=== PATIENT | female | born 1940 | race Caucasian/White ===

== ENCOUNTER 2017-01-09 05:29 | Inpatient (IN) | payer MEDICARE, BC ==
[2017-01-06 14:21] LABS: HEMOGLOBIN 13.6 g/dL (12.0-16.0)
[2017-01-06 14:22] LABS: HEMATOCRIT 41.4 % (36.0-48.0)
--- NOTE | ~2017-01-09 | PREOPHP ---
PreOp History and Physical [facility] [address] [place]. [address] NAME: LILIANA WILHELM : 38 STATUS : ADM IN PAT#: [id number] AGE: 76 ADM/REG DATE : 01/09/17 MR#: [id number] REPORT SERV DATE: 01/09/17 DICTATED BY: NABEEL JOYCE DATE: 01/09/17 REPORT STATUS : Draft TRANSCRIBED BY: MODRadha DATE: 01/09/17 CHIEF COMPLAINT: Back pain and right leg pain. HISTORY OF PRESENT ILLNESS: This is a 76-year-old female, who has had a previous L3-L5 fusion by Dr. Bello several years ago. She recently has had an acute onset of severe pain in the right hip and leg and the right groin. The pain is so severe she is having a hard time just functioning at all. The patient has failed to respond to any conservative care. Plain x-rays reveal osteopenia. MRI shows a large disk herniation centrally into the right at L1-L2 with rather severe impingement. There is moderate spinal stenosis at L2-L3. The patient is admitted for hardware removal at L3. There will be right-sided L1-L2 and L2- L3 hemilaminectomy, foraminotomy, facetectomy with decompression. The facetectomy is necessary in order to adequately decompress the central canal and the foramen, particularly to have access to the disk herniation at L1-L2 and with facetectomy, instability will be created. Re-stabilization will be through a complete transforaminal diskectomy and interbody cage insertion, a posterolateral interbody fusion with local bone graft and allograft, and a posterior percutaneous instrumentation from L1-L3. Prior to surgery, I have gone over the risks, benefits, alternatives, and expectations in great detail. Consent form has been signed. Please also note because of the complexity of the surgery and the need to identify correct level of surgery intraoperatively as well as desire to carry out the safest and most precise dissection, I feel intraoperative navigation is mandatory. Today, in the preop holding, the patient was identified, all questions were answered, and the patient expressed the desire to proceed with surgery. PAST MEDICAL HISTORY: Has included osteoporosis, anxiety, osteoarthritis, hypertension, hyperthyroidism with Graves disease, peripheral neuropathy, and depression. PAST SURGICAL HISTORY: Partial thyroidectomy, skin cancer removals, D and C, cataract extraction, lens implant, lumbar fusion L3-L5, knee arthroscopy, hammertoe corrections of the right foot, and a bunionectomy on the right side. CURRENT MEDICATIONS: Include Celebrex, Fosamax, hydrocodone, hydrocortisone topical cream, latanoprost eye drops, methocarbamol, Montelukast, Nystatin topical cream, Synthroid, simvastatin, Prevnar, and Xiidra 5% eye drops. ALLERGIES: DAYPRO, IBUPROFEN, LYRICA, ONION, PAXIL, SULFA. SOCIAL HISTORY: . Retired. Nonsmoker and does not use any alcohol. FAMILY HISTORY: Father had hypertension. Mother had COPD and hypertension. REVIEW OF SYSTEMS: She wears corrective lenses and has to ambulate with an assistive device. PHYSICAL EXAMINATION: PreOp History and Physical [address] [place]. [address] NAME: LILIANA WILHELM : 38 STATUS : ADM IN [facility]#: [id number] AGE: 76 ADM/REG DATE : 01/09/17 MR#: [id number] REPORT SERV DATE: 01/09/17 DICTATED BY: NABEEL JOYCE DATE: 01/09/17 REPORT STATUS : Draft TRANSCRIBED BY: DARIANA DATE: 01/09/17 VITAL SIGNS: 5 feet 5 inches, 140 pounds, BMI is 23.3. GENERAL: She is alert, cooperative, well oriented. She ambulates very slowly with trunk forward flexed. HEENT: Grossly normal, except that her pupils are altered by prior surgery. Extraocular muscles are intact. Oral exam is grossly normal. NECK: There are no carotid bruits auscultated. LUNGS: Clear to auscultation. HEART: Rate is regular and rhythmic. ABDOMEN: Soft with good bowel sounds. No peritoneal signs are noted. MUSCULOSKELETAL: Spine has no gross deformities. There is pain with percussion over the thoracolumbar junction. There is no paraspinous muscle spasm. There are no leg length discrepancies. Femoral nerve stretch test is positive on the right, it is negative on the left. The straight leg raising signs are negative. Patella and Achilles reflexes are completely absent. There is a slight decrease in vibratory sensation in the feet. Otherwise, the sensation is grossly intact. Motor strengths are weak with the right iliopsoas at 4-/5, the adductor is also weak at 4-/5 on the right, quadriceps is 4+/5, all others are normal. Toes are downgoing. No ankle clonus found. ORTHOPEDIC: There is no pain with movement of hips, knees, or ankles. There are pulses in each extremity although weak, but they are symmetrical. There is no abnormal capillary refill. No abnormal skin lesions found. ASSESSMENT AND RECOMMENDATIONS: As listed above. /KIMIL Nabeel Joyce D.O. / [id number] CC: Nabeel Joyce D.O.
--- NOTE | ~2017-01-09 | DS ---
Discharge Summary [facility] [address] [place]. [address] NAME: LILIANA WILHELM : 38 STATUS : DIS IN PAT#: [id number] AGE: 76 ADM/REG DATE : 01/09/17 MR#: [id number] REPORT SERV DATE: 01/24/17 DICTATED BY: NABEEL JOYCE DATE: 01/23/17 REPORT STATUS : Draft TRANSCRIBED BY: MODL DATE: 01/23/17 Data Collection from hospitalization DISCHARGE DIAGNOSES: 1. Large herniated nucleus pulposus, severe spinal stenosis, central right L1-2. 2. Qqmjetjx-ik-duadwa spinal stenosis at L2-3. 3. Prior fusion at L3-5. 4. Hypertension. 5. Osteoporosis. 6. Anxiety and depression. 7. Osteoarthritis. 8. Hyperthyroidism. 9. Graves disease. 10.Peripheral neuropathy. CONSULTATIONS: None. PROCEDURES PERFORMED: Microscopic and navigation-assisted surgery; L3 hardware removal; right-sided L1-2 and L2-3 hemilaminectomy, foraminotomy, facetectomy, transforaminal diskectomy, anterior interbody Capstone cage insertion; posterolateral interbody fusion with local bone graft, allograft and small dosage of bone protein at L1-2 and L2-3; posterior percutaneous segmental instrumentation at L1-L3 using Ummitechger System, 01/09/2017. PATHOLOGY: Bone and soft tissue, lumbar spine-bone skeletal muscle and fibrocartilage. No significant pathologic abnormality. No infection or neoplasm. Lumbar hardware (see gross description). DISCHARGE MEDICATIONS: Vitamin B12 1000 mcg daily, Caltrate plus D 600 mg daily, vitamin D 1000 units daily, Colace 100 mg twice a day, MiraLAX one packet every morning as instructed, Metamucil one packet daily, Zocor 20 mg at bedtime, Mylanta 30 mL as needed, Dulcolax 10-15 mg orally or rectally as needed, [place] 5/325 one to two tablets every six hours as needed for pain, Robaxin 500 mg three times a day as needed, milk of magnesia 30 mL twice a day as needed, Azopt one drop twice a day as instructed, Xiidra one drop every 12 hours, multivitamins one tablet daily. CONDITION AT DISCHARGE: Stable. DISPOSITION: The patient was discharged to [facility] on a 2200-calorie diabetic diet with activities as instructed. She would follow up with Светлана Lawson, 01/25/2017. HOSPITAL COURSE: This is a 76-year-old female, who had had previous L3-L5 fusion by Dr. Bello several years prior to this admission. She recently had the acute onset of severe pain in the right hip and leg and in the right groin. The pain was so severe that she was having a hard time just functioning at all. The patient had failed to respond to any conservative care. Plain x-rays revealed osteopenia. MRI showed large disk herniation centrally and the right L1-L2 with rather severe impingement. Here was moderate spinal stenosis at L2-L3. Treatment options were discussed and it was elected to proceed with surgical intervention. She was admitted to the hospital at this time for further evaluation Discharge Summary [address] [place]. [address] NAME: LILIANA WILHELM : 38 STATUS : DIS IN PAT#: [id number] AGE: 76 ADM/REG DATE : 01/09/17 MR#: [id number] REPORT SERV DATE: 01/24/17 DICTATED BY: NABEEL JOYCE DATE: 01/23/17 REPORT STATUS : Draft TRANSCRIBED BY: DARIANA DATE: 01/23/17 and treatment. Upon admission, she was taken to the operating room, where she underwent the above-mentioned procedure. She tolerated this well and there were no complications. On postop day one, she was doing okay. She was evaluated by Physical Therapy. The patient has poor pain tolerance. On postop day two, she was sleepy. Her diet was going to be advanced. She was changed to oral medications. Over the next couple of days, she continued to progress. She was doing much better. She was passing a lot of flatus. Discharge planning was performed. On 01/13/2017, she continued to do okay. She did have a bowel movement. Her dressings were clean, dry, and intact. Discharge instructions were given. Due to her improved and stable condition, she was discharged to [facility] with the above-stated instructions. Information collected by: Marilu Alvarado I submit the above information as my discharge summary. VERÓNICA/DARIANA Nabeel Joyce D.O. / [phone] CC: Angela Chacon M.D. [facility]
--- NOTE | ~2017-01-09 | OP ---
Record Of Operation [facility] [address] [place]. [address] NAME: LILIANA WILHELM : 38 STATUS : ADM IN PAT#: [id number] AGE: 76 ADM/REG DATE : 01/09/17 MR#: [id number] REPORT SERV DATE: 01/09/17 DICTATED BY: NABEEL JOYCE DATE: 01/09/17 REPORT STATUS : Draft TRANSCRIBED BY: MODL DATE: 01/09/17 DATE OF PROCEDURE: 01/09/2017 PREOPERATIVE DIAGNOSES: 1. Large herniated nucleus polyposis, severe spinal stenosis, central right L1-2. 2. Moderate to severe spinal stenosis at L2-3. 3. Prior fusion at L3-5. POSTOPERATIVE DIAGNOSES: 1. Large herniated nucleus polyposis, severe spinal stenosis, central right L1-2. 2. Moderate to severe spinal stenosis at L2-3. 3. Prior fusion at L3-5. PROCEDURES: 1. Microscopic and navigation-assisted surgery. 2. L3 hardware removal. 3. Right-sided L1-2 and L2-3 hemilaminectomy, foraminotomy, facetectomy, transforaminal discectomy, anterior interbody Capstone cage insertion, posterior lateral interbody fusion with local bone graft, allograft, and small dosage of bone protein at L1-2 and L2-3. 4. Posterior percutaneous segmental instrumentation at L1-L3 using Voyager system. DRILLER'S OFFSIDER: Antoni Vines. ANESTHESIA: General. BLOOD LOSS: 200 mL. INDICATION FOR SURGERY: Indication for surgery and risks were explained and listed in the last office note as well as history and physical. See that for detail. DESCRIPTION OF PROCEDURE: Antibiotic prophylaxis given. Neurophysiology monitoring leads inserted. The patient was brought to the operative suite. General anesthetic including endotracheal intubation administered. A Diaz catheter was inserted with sterile technique. The patient was placed prone on a Pb spine frame. Bony prominences were carefully padded. Thoracolumbar spine was scrubbed with Hibiclens solution. DuraPrep was painted. Sterile drapes were applied. A small stab wound was carried out at the left posterior superior iliac spine. A percutaneous pin with navigational frame attached was inserted in PSIS after sterile prep and drape had been carried out. Intraoperative CT scan with O-arm was obtained. CT information was used to register the navigational system. With navigational assistance, I identified the L1-2 and L2-3 levels. I also identified L3 hardware. Approximately, a 3.5 cm skin incision was carried out just lateral to the facet joint from L1 to L3. The skin was mobilized inferiorly. A blunt navigated probe was placed Record Of Operation [facility] [address] [place]. [address] NAME: LILIANA WILHELM : 38 STATUS : ADM IN PAT#: [id number] AGE: 76 ADM/REG DATE : 01/09/17 MR#: [id number] REPORT SERV DATE: 01/09/17 DICTATED BY: NABEEL JOYCE DATE: 01/09/17 REPORT STATUS : Draft TRANSCRIBED BY: MODL DATE: 01/09/17 through the fascia and muscle and docked over the hardware at L3-4. Muscle dilators were inserted followed by placement of a tubular retractor attached to an arm mount on the table. The microscope was sterilely draped and used throughout the remainder of the procedure. The hardware was exposed. The cap was removed. The monroe was transected just above the pedicle screw of L4 with a carbide bit. The screw on the monroe was removed. The wound was irrigated. The retractor was removed. I originally started on the left side and then I moved to the right side. I carried out the same 3.5 cm skin incision and placed in the same location as on the left side. I then placed the tubular retractor through the inferior portion of the skin incision and docked over the hardware. I removed the hardware in an identical fashion at L3. Wounds were irrigated. I then used the same skin incision but a different fascial opening. I placed a blunt navigated probe through the fascia and muscle and docked over the L2-3 facet joint. Muscle dilators were inserted followed by placement of a tubular retractor. With navigational assistance, I identified the inferior pedicle of L2 and superior pedicle of L3. I used a cutting bur, a lorrie bur, and 2 and 3 mm Kerrison rongeurs, and I moved from lateral to medial removing the entire superior articular process of L3 down to the top of the pedicle. I removed the pars interarticularis, the lamina, and inferior articular process of L2. There was definitely ligamentum flavum hypertrophy causing rather marked central canal lateral recess stenosis. Lesser degrees of lateral foraminal stenosis were found. After the decompression, a transforaminal discectomy was carried out with curettes, rongeurs, and disk aleks. Intradiscal trial was carried out. The wound was irrigated. We then inserted a bone graft in the middle of the interbody space. The cage was inserted through the bone graft into the middle of the interbody space and additional bone graft was packed in the posterior lateral interbody fusion and completed in this manner. The retractor was then removed. The skin was mobilized slightly proximal. A third separate fascial opening was carried out placing the blunt navigated probe through the fascia and muscle and docking over the L1-2 facet joint. Once again, we placed a tubular retractor. Once again, we carried out the same identical hemilaminectomy, foraminotomy, and facetectomy. One thing that was quite distressing is that the dura was completely scarred to the medial edge of the lateral recess and the medial edge of the L2 facet. We removed the pars interarticularis. We removed the ligamentum flavum, and at the midportion of the lateral recess on the right side, we removed the ligamentum flavum, which was scarred to the dura, and we did remove a slight degree of dura, but the arachnoid remained intact. We did not have a CSF leak of any kind. At the end of the case, we did put drapes and patched to reinforce it and also sealed with a Tisseel just to make sure that there was no leak and no problems, but we never had a leak per se and there was no nerve root prolapse, etc. We were able to mobilize and remove through a transforaminal approach the entire disc. We placed interbody grafting and interbody cage as I just previously indicated. Finally, percutaneously, I placed a pedicle tap and screw diesel tractor operator and tapped the pedicles of L1-2 bilaterally and then we placed polyaxial Voyager screw at L1, 2, and 3 bilaterally. The captured lordotic Voyager monroe was placed through the top portion of the screw extenders, reduced into the tulip of the pedicle screw. The set screws were inserted and tightened with a torque wrench providing rigid stability. Intraoperative CT scan repeated showing Record Of Operation [facility] [id number] [place]. [address] NAME: LILIANA WILHELM : 38 STATUS : ADM IN PAT#: [id number] AGE: 76 ADM/REG DATE : 01/09/17 MR#: [id number] REPORT SERV DATE: 01/09/17 DICTATED BY: NABEEL JOYCE DATE: 01/09/17 REPORT STATUS : Draft TRANSCRIBED BY: DARIANA DATE: 01/09/17 excellent position of all implants. A watertight fascial closure was completed on the right side using 0 Prolene, subcutaneous tissue closed with 2-0 Vicryl, 2-0 vertical mattress nylon sutures were used for skin closure. Sterile dressings applied. The patient returned to supine position, awakened, extubated, and taken to recovery room in satisfactory condition having tolerated the procedure well. JANNETH/DARIANA Nabeel Joyce D.O. / [id number] CC: Nabeel Joyce D.O.
[~2017-01-09 05:29] MED LIST: ASAB PO; ASABAYER PO; AZOPT OPH; CALTRA600D PO; CELEBREX2 PO; COZ50 PO; CYANO1000T PO; EVISTA60 PO; FOSAMAX70 MG PO; GENPRIL200 MG PO; GLUCCHONDR PO; LYRICA50 PO; MAALOX PO; METHOC500B PO; METPAKSF PO; MIRALAX POWDER1 PKT PO; MIRALAXPKT PO; MULTIPLE VIT PO; MULTIVITAMI1 PO; NORCO1 TA1 PO; OS250 PO; SINGULAIR1 PO; SYNTHROID137 MCG PO; T PO; VITAMIN D1000 UNI1 PO; XALAT OPH; XIIDRA1 EACH OPH; ZOCOR20 PO
[2017-01-09 14:52] LABS: BASOPHILS 0.2 %; BASOPHILS ABSOLUTE 0.02 10/3/uL (0.0-0.16); EOSINOPHILS 0 %; HEMATOCRIT 37.9 % (36.0-48.0); HEMOGLOBIN 12.4 g/dL (12.0-16.0); IMMATURE GRANULOCYTES 0.9 %; IMMATURE GRANULOCYTES ABSOLUTE 0.08 10/3/uL (0.0-0.11); LYMPHOCYTES 21.5 %; LYMPHOCYTES ABSOLUTE 1.89 10/3/uL (0.67-4.30); MEAN CORPUS HGB CONC 32.7 g/dL (32.0-36.0); MEAN CORPUSCULAR HEMOGLOB 32.6 pg (26.0-34.0); MEAN CORPUSCULAR VOLUME 99.7 fL (80-100); MEAN PLATELET VOLUME 10.2 fL (9.2-13.0); MONOCYTES 1.4 %; MONOCYTES ABSOLUTE 0.12 10/3/uL (0.21-1.20); PLATELET COUNT 163 10/3/uL (150-400); RBC DISTRIBUTION WIDTH 13.8 % (12.0-16.0)
[2017-01-09 14:53] LABS: MANUAL DIFF NO %; WHITE BLOOD CELLS 8.8 10/3/uL (4.5-10.5)
[2017-01-09 15:05] LABS: BUN (BLOOD UREA NITROGEN) 9 MG/DL (6-23); CALCIUM, SERUM 8.3 MG/DL (8.5-10.4); CHLORIDE, SERUM 111 MMOL/L (96-112); CO2 (CARBON DIOXIDE) 25 MMOL/L (24-34); CREATININE 0.69 MG/DL (0.55-1.02); GFR AFRICAN AMERICAN 97 ML/MIN (>=60); GFR NON AFRICAN AMERICAN 83 ML/MIN (>=60); GLUCOSE, SERUM 182 MG/DL (60-99); POTASSIUM, SERUM 3.9 MMOL/L (3.5-5.3); SODIUM, SERUM 145 MMOL/L (135-148)
[2017-01-10 04:33] LABS: BASOPHILS 0.1 %; BASOPHILS ABSOLUTE 0.01 10/3/uL (0.0-0.16); EOSINOPHILS 0 %; HEMOGLOBIN 10.9 g/dL (12.0-16.0); IMMATURE GRANULOCYTES 0.3 %; IMMATURE GRANULOCYTES ABSOLUTE 0.03 10/3/uL (0.0-0.11); LYMPHOCYTES 9.4 %; MEAN CORPUS HGB CONC 32.5 g/dL (32.0-36.0); MEAN CORPUSCULAR HEMOGLOB 33.2 pg (26.0-34.0); MEAN CORPUSCULAR VOLUME 102.1 fL (80-100); MEAN PLATELET VOLUME 10.3 fL (9.2-13.0); MONOCYTES 12.4 %; MONOCYTES ABSOLUTE 1.32 10/3/uL (0.21-1.20); NEUTROPHILS 77.8 %; NEUTROPHILS ABSOLUTE 8.27 10/3/uL (2.02-8.40); PLATELET COUNT 144 10/3/uL (150-400); RBC DISTRIBUTION WIDTH 14.1 % (12.0-16.0); RED CELL COUNT 3.28 10/6/uL (4.0-5.6); WHITE BLOOD CELLS 10.6 10/3/uL (4.5-10.5)
[2017-01-10 04:34] LABS: HEMATOCRIT 33.5 % (36.0-48.0); MANUAL DIFF NO %
[2017-01-10 04:42] LABS: BUN (BLOOD UREA NITROGEN) 10 MG/DL (6-23); CALCIUM, SERUM 8.1 MG/DL (8.5-10.4); CHLORIDE, SERUM 109 MMOL/L (96-112); CO2 (CARBON DIOXIDE) 27 MMOL/L (24-34); CREATININE 0.62 MG/DL (0.55-1.02); GFR AFRICAN AMERICAN 100 ML/MIN (>=60); GFR NON AFRICAN AMERICAN 86 ML/MIN (>=60); GLUCOSE, SERUM 157 MG/DL (60-99); POTASSIUM, SERUM 3.9 MMOL/L (3.5-5.3); SODIUM, SERUM 144 MMOL/L (135-148)
== END 2017-01-13 15:53 | DRG 460 ==
LOC: SDC/OF 05:29 → PACU 14:39 → 3SO 18:21
PROVIDERS: Orthopaedic Surgery Orthopaedic Surgery of the Spine
PROC: 0SG10AJ Fusion of 2 or more Lumbar Vertebral Joints with Interbody Fusion Device, Posterior Approach, Anterior Column, Open Approach (ICD-10-PCS; principal; 2017-01-09 07:30)
PROC: 0ST20ZZ Resection of Lumbar Vertebral Disc, Open Approach (ICD-10-PCS; 2017-01-09 07:30)
PROC: 4A11X4G Monitoring of Peripheral Nervous Electrical Activity, Intraoperative, External Approach (ICD-10-PCS; 2017-01-09 07:30)
DX: M51.36 Other intervertebral disc degeneration, lumbar region (principal); K21.9 Gastro-esophageal reflux disease without esophagitis
CPT/HCPCS: 36415; 71010; 80048; 82962; 85014; 85018; 85025; 86850; 86900; 86901; 87641; 88300; 88304; 88311; 93005; 97116-GP; 97161-GP; 97530-GP; A9270-GY; C1713; C1768; G8978-CK-GP; G8979-CJ-GP; J0690; J1644; J2250; J2370; J2405; J2710; J3010; J3370